=== PATIENT | female | born 1980 | race Two or more races ===

== ENCOUNTER 2021-06-28 13:19 | Outpatient (CLI) | payer OTHER | END 2021-06-28 14:38 | disposition home or self-care (01) | LOC: PRENATAL 13:19 | PROVIDERS: ATTEND Obstetrics & Gynecology Maternal & Fetal Medicine | DX: O35.0XX1 Maternal care for (suspected) central nervous system malformation in fetus, fetus 1 (principal); O35.3XX1 Maternal care for (suspected) damage to fetus from viral disease in mother, fetus 1; O98.512 Other viral diseases complicating pregnancy, second trimester; O09.522 Supervision of elderly multigravida, second trimester; Z36.89 Encounter for other specified antenatal screening; Z3A.21 21 weeks gestation of pregnancy ==

== ENCOUNTER 2021-09-14 11:37 | Outpatient (CLI) | payer OTHER | END 2021-09-14 12:13 | disposition home or self-care (01) | LOC: PRENATAL 11:37 | PROVIDERS: ATTEND Obstetrics & Gynecology Maternal & Fetal Medicine | DX: O26.843 Uterine size-date discrepancy, third trimester (principal); O09.513 Supervision of elderly primigravida, third trimester; O36.8131 Decreased fetal movements, third trimester, fetus 1; O35.0XX1 Maternal care for (suspected) central nervous system malformation in fetus, fetus 1; Z36.89 Encounter for other specified antenatal screening; Z3A.32 32 weeks gestation of pregnancy ==

== ENCOUNTER 2021-10-29 08:00 | Inpatient (IN) | payer OTHER ==
[~2021-10-29] VITALS: Ht 162.6 cm; Wt 3.2 kg
[2021-10-29] MEDS ORDERED: LEVOTHYROXINE25 MCG PO (09:22)
== END 2021-11-02 17:15 | disposition home or self-care (01) | DRG 788 ==
LOC: OB/GYN 10-31 08:00 → O/R 10-31 08:30 → OB/GYN 10-31 08:30
PROVIDERS: ADMIT Obstetrics & Gynecology; ATTEND Obstetrics & Gynecology
PROC: 0UB70ZX Excision of Bilateral Fallopian Tubes, Open Approach, Diagnostic (ICD-10-PCS; 2021-10-31)
PROC: 10D00Z1 Extraction of Products of Conception, Low, Open Approach (ICD-10-PCS; principal; 2021-10-31 10:00)
DX: O34.211 Maternal care for low transverse scar from previous cesarean delivery (principal); O75.82 Onset (spontaneous) of labor after 37 completed weeks of gestation but before 39 completed weeks gestation, with delivery by (planned) cesarean section; Z3A.39 39 weeks gestation of pregnancy; Z37.0 Single live birth